=== PATIENT | female | born 1960 | race Caucasian/White ===

== ENCOUNTER 2025-03-15 14:23 | Outpatient (CLI) | payer OTHER | END 2025-03-15 14:24 | disposition home or self-care (01) | LOC: CT 14:23 | PROVIDERS: ATTEND Student in an Organized Health Care Education/Training Program | DX: Z12.2 Encounter for screening for malignant neoplasm of respiratory organs (principal); F17.210 Nicotine dependence, cigarettes, uncomplicated; D35.02 Benign neoplasm of left adrenal gland; Z86.2 Personal history of diseases of the blood and blood-forming organs and certain disorders involving the immune mechanism | CPT/HCPCS: 71271 ==

== ENCOUNTER 2025-07-05 13:47 | Outpatient (CLI) | payer OTHER, MEDICAID | END 2025-07-05 13:48 | disposition home or self-care (01) | LOC: ULT 13:47 | PROVIDERS: ATTEND Student in an Organized Health Care Education/Training Program | DX: E07.9 Disorder of thyroid, unspecified (principal); Z78.0 Asymptomatic menopausal state; Z72.0 Tobacco use; E04.2 Nontoxic multinodular goiter | CPT/HCPCS: 76536 ==